=== PATIENT | male | born 1985 | race Hispanic/Latino ===

== ENCOUNTER 2017-08-31 16:23 | Emergency (ER) | payer OTHER ==
[~2017-08-31] VITALS: Ht 170.2 cm; Wt 70.6 kg
[~2017-08-31 16:23] MED LIST: NAPROSYN500 MG PO; PREDNISONE20 MG PO; ULTRAM50 MG PO
[2017-08-31 16:28] VITALS: BP 107/72
== END 2017-08-31 17:14 | disposition home or self-care (01) ==
LOC: EME 16:23
DX: J06.9 Acute upper respiratory infection, unspecified (principal)
CPT/HCPCS: 99281; 99284

== ENCOUNTER 2018-03-24 10:30 | Emergency (ER) | payer SELFPAY ==
[~2018-03-24] VITALS: Ht 170.2 cm; Wt 68.7 kg
[2018-03-24] MEDS ORDERED: KEFLEX500 MG PO (11:48)
[2018-03-24 12:19] VITALS: BP 120/72
== END 2018-03-24 12:21 | disposition home or self-care (01) ==
LOC: EME 10:30
PROC: 3E0234Z Introduction of Serum, Toxoid and Vaccine into Muscle, Percutaneous Approach (ICD-10-PCS; principal; 2018-03-24)
DX: S61.412A Laceration without foreign body of left hand, initial encounter (principal); S61.411A Laceration without foreign body of right hand, initial encounter; W25.XXXA Contact with sharp glass, initial encounter; L03.114 Cellulitis of left upper limb; L03.113 Cellulitis of right upper limb; Z23 Encounter for immunization
CPT/HCPCS: 99281; 99284